=== PATIENT | male | born 1985 | race Native Hawaiian/Other Pacific Islander ===

== ENCOUNTER 2017-09-20 14:27 | Emergency (ER) | payer OTHER ==
[~2017-09-20] VITALS: Ht 175.3 cm; Wt 72.6 kg
[2017-09-20 14:30] VITALS: BP 114/71; TEMP 98.1
== END 2017-09-20 16:10 | disposition home or self-care (01) ==
LOC: ED 14:27
DX: Z76.0 Encounter for issue of repeat prescription (principal)
CPT/HCPCS: 99281